=== PATIENT | female | born 1980 | race Caucasian/White ===

== ENCOUNTER 2020-11-20 09:35 | Inpatient (IN) | payer BC ==
[2020-11-20 10:12] VITALS: BMI 43.6
[2020-11-20] MEDS ORDERED: Promethazine HCl 25 MG/ML VIAL IM PRN ×4 (10:40→16:20)
[2020-11-20] MEDS ORDERED: Famotidine/PF 20 mg/2ml Vial SLOW IVP PRN (10:40)
[2020-11-20] MEDS ORDERED: Bicitra 30 ML UDCUP PO PRN ×2 (10:40→10:42)
[2020-11-20] MEDS ORDERED: Acetaminophen 500 MG TAB PO PRN (10:40)
[2020-11-20] MEDS ORDERED: Butorphanol Tartrate 1 MG/ML VIAL SLOW IVP PRN (10:40)
[2020-11-20] MEDS ORDERED: hydrALAZINE 20 MG/ML VIAL SLOW IVP PRN ×2 (10:40→16:20)
[2020-11-20] MEDS ORDERED: Ondansetron PF 4 MG/2 ML Vial IVP PRN ×3 (10:40→16:20)
[2020-11-20] MEDS ORDERED: Lactated Ringer's 1,000 ML IV SCH (10:45)
[2020-11-20] MEDS ORDERED: Azithromycin 500 MG in Sodium Chloride 0.9% 250 ML 250 ML IVPB SCH (10:45)
[2020-11-20] MEDS ORDERED: Clindamycin/D5W 900 MG in Premix Bag 1 BAG IVPB SCH (10:45)
[2020-11-20 11:14] LABS: Hemoglobin 11.8 g/dL (12.0-15.5); Mean Corpuscular HGB CONC 32.5 g/dL (32.0-36.0); Mean Corpuscular Hemoglobin 27.1 pg (27.0-33.0); Mean Corpuscular Volume 83.4 fl (81.6-98.3); Mean Platelet Volume 10.4 fl (7.4-10.4); Platelet Count 361 10x3/uL (150-450); RBC Distribution Width 14.6 % (11.5-14.5); Red Blood Cell (RBC) Count 4.35 10x6/uL (3.90-5.03); White Blood Cell (WBC) Count 12.7 10x3/uL (3.5-10.5)
[2020-11-20] MEDS ORDERED: Phenylephrine 10 MG/ML VIAL ONE (11:38)
[2020-11-20] MEDS ORDERED: Ondansetron PF 4 MG/2 ML Vial ONE (11:38)
[2020-11-20] MEDS ORDERED: Oxytocin 10 UNITS/ML VIAL ONE (11:38)
[2020-11-20 11:39] LABS: Hep B Surf Ag Non-Reactive S/CO (NonReactive); Syphilis Antibody Nonreactive (Nonreactive); Syphilis Antibody Index 0.04 S/CO (<1.00 Non-Reactive)
[2020-11-20] MEDS ORDERED: Morphine PF 10 MG/10 ML VIAL ONE (11:56)
[2020-11-20 12:05] LABS: HBSAg Index 0.14 S/CO (0-0.99)
[2020-11-20] MEDS ORDERED: Naloxone HCl 0.4 mg/ml Vial IVP PRN ×2 (14:46)
[2020-11-20] MEDS ORDERED: diphenhydrAMINE 50 MG/ML VIAL IVP PRN (14:46)
[2020-11-20] MEDS ORDERED: Promethazine HCl 25 MG SUPP PR PRN (14:46)
[2020-11-20] MEDS ORDERED: Naloxone HCl 0.4 mg/ml Vial IV PRN (14:46)
[2020-11-20] MEDS ORDERED: Promethazine HCl 25 MG/ML VIAL SLOW IVP PRN (14:47)
[2020-11-20] MEDS ORDERED: Ondansetron HCl/PF 4 MG/2 ML Vial IVP PRN (14:47)
[2020-11-20] MEDS ORDERED: Communication Order-Pharmacy FS SCH (15:00)
[2020-11-20] MEDS ORDERED: HYDROcodone/Acetaminophen 5/325 mg Tablet PO PRN (16:20)
[2020-11-20] MEDS ORDERED: Zolpidem Tartrate 5 MG TAB PO PRN (16:20)
[2020-11-20] MEDS ORDERED: Bisacodyl 10 MG SUPP PR PRN (16:20)
[2020-11-20] MEDS ORDERED: Adacel (T-DAP) 0.5 ML SYRINGE IM ONE (16:20)
[2020-11-20] MEDS ORDERED: Lanolin Ointment 7 GM TUBE TOP PRN (16:20)
[2020-11-20] MEDS ORDERED: Misoprostol 200 MCG TAB PR PRN (16:20)
[2020-11-20] MEDS ORDERED: Simethicone Chewable 80 MG TAB PO PRN (16:20)
[2020-11-20] MEDS ORDERED: diphenhydrAMINE 25 MG CAP PO PRN (16:20)
[2020-11-20] MEDS ORDERED: Measles/Mumps/Rubella 10 MCG/0.5 ML VIAL SC ONE (16:20)
[2020-11-20] MEDS ORDERED: Varicella virus, LIVE 0.5 ML VIAL SC ONE (16:20)
[2020-11-20] MEDS ORDERED: NS w/ Oxytocin 30 units 500 ML IV SCH (16:20)
[2020-11-20] MEDS ORDERED: Hydrocerin (Eucerin) Cream 120 gm Jar TOP PRN (16:36)
[2020-11-20] MEDS: Ketorolac Tromethamine 30 MG/ML VIAL IVP PRN (17:05)
[2020-11-20] MEDS: Ferrous Sulfate 325 MG TAB PO SCH (20:58)
[2020-11-20] MEDS: Docusate Calcium (SURFAK) 240 MG CAP PO SCH (20:59)
[2020-11-20 21:47] LABS: SARS-CoV-2 PCR by NAA Not Detected (NotDetected)
[2020-11-21] MEDS: Ketorolac Tromethamine 30 MG/ML VIAL IVP PRN ×3 (01:41→16:26)
[2020-11-21 06:19] LABS: Hemoglobin 9.1 g/dL (12.0-15.5); Mean Corpuscular HGB CONC 31.9 g/dL (32.0-36.0); Mean Corpuscular Hemoglobin 27.1 pg (27.0-33.0); Mean Corpuscular Volume 84.8 fl (81.6-98.3); Mean Platelet Volume 10.4 fl (7.4-10.4); Platelet Count 292 10x3/uL (150-450); RBC Distribution Width 14.8 % (11.5-14.5); Red Blood Cell (RBC) Count 3.36 10x6/uL (3.90-5.03); White Blood Cell (WBC) Count 11.4 10x3/uL (3.5-10.5)
[2020-11-21] MEDS: Ferrous Sulfate 325 MG TAB PO SCH ×2 (08:58→20:25)
[2020-11-21] MEDS: Docusate Calcium (SURFAK) 240 MG CAP PO SCH ×2 (08:59→20:24)
[2020-11-21] MEDS: Enoxaparin Sodium 40 MG/0.4 ML SYRINGE SC SCH (10:37)
[2020-11-21] MEDS ORDERED: lamoTRIgine 100 MG TAB PO SCH (12:15)
[2020-11-21] MEDS ORDERED: metFORMIN 500 MG TAB PO SCH (12:15)
[2020-11-21] MEDS ORDERED: Venlafaxine HCl XR 75 MG CAP PO SCH (12:15)
[2020-11-21] MEDS: HYDROcodone/Acetaminophen 5/325 mg Tablet PO PRN ×2 (13:10→20:23)
[2020-11-21] MEDS: Ibuprofen 800 MG TAB PO SCH (20:24)
[2020-11-21] MEDS: Labetalol 100 MG TAB PO SCH (20:29)
[2020-11-22] MEDS: HYDROcodone/Acetaminophen 5/325 mg Tablet PO PRN ×2 (01:07→09:36)
[2020-11-22] MEDS: Ibuprofen 800 MG TAB PO SCH (05:37)
[2020-11-22] MEDS ORDERED: metFORMIN 500 MG TAB PO SCH (08:00)
[2020-11-22] MEDS: Labetalol 100 MG TAB PO SCH (08:14)
[2020-11-22] MEDS: Docusate Calcium (SURFAK) 240 MG CAP PO SCH (08:14)
[2020-11-22] MEDS: Ferrous Sulfate 325 MG TAB PO SCH (08:14)
[2020-11-22] MEDS: Enoxaparin Sodium 40 MG/0.4 ML SYRINGE SC SCH (08:15)
[2020-11-22] MEDS ORDERED: Venlafaxine HCl XR 75 MG CAP PO SCH (09:00)
[2020-11-22] MEDS ORDERED: lamoTRIgine 100 MG TAB PO SCH (09:00)
[2020-11-22 12:17] VITALS: BP 114/66; TEMP 98.8
== END 2020-11-22 13:21 | disposition home or self-care (01) | DRG 787 ==
LOC: CSHLD/OP 09:35 → CSHLD 13:20 → CSHPP 15:10
PROVIDERS: ADMIT Obstetrics & Gynecology; ATTEND Obstetrics & Gynecology
PROC: 10D00Z1 Extraction of Products of Conception, Low, Open Approach (ICD-10-PCS; principal; 2020-11-20)
PROC: 0UCC7ZZ Extirpation of Matter from Cervix, Via Natural or Artificial Opening (ICD-10-PCS; 2020-11-20)
DX: O42.013 Preterm premature rupture of membranes, onset of labor within 24 hours of rupture, third trimester (principal); O10.92 Unspecified pre-existing hypertension complicating childbirth; Z20.822 Contact with and (suspected) exposure to COVID-19; O34.211 Maternal care for low transverse scar from previous cesarean delivery; O99.214 Obesity complicating childbirth; E66.01 Morbid (severe) obesity due to excess calories; F31.9 Bipolar disorder, unspecified; J45.909 Unspecified asthma, uncomplicated; O99.513 Diseases of the respiratory system complicating pregnancy, third trimester; O99.343 Other mental disorders complicating pregnancy, third trimester; Z3A.36 36 weeks gestation of pregnancy; Z37.0 Single live birth; Z88.1 Allergy status to other antibiotic agents; Z88.0 Allergy status to penicillin
CPT/HCPCS: 36415; 51702; 85027; 86780; 86850; 86900; 86901; 87340; 87635; 99285; J1650; J1885; J2274; J2370; J2405; J3490; U0003; U0005

== ENCOUNTER 2021-08-20 15:27 | Outpatient (CLI) | payer BC | END 2021-08-20 15:28 | disposition home or self-care (01) | LOC: CSHMAMMO 15:27 | PROVIDERS: ATTEND Physician Assistant | DX: Z12.31 Encounter for screening mammogram for malignant neoplasm of breast (principal); Z80.3 Family history of malignant neoplasm of breast | CPT/HCPCS: 77063; 77067 ==

== ENCOUNTER 2022-09-10 09:18 | Outpatient (CLI) | payer BC | END 2022-09-10 09:19 | disposition home or self-care (01) | LOC: CSHMAMMO 09:18 | PROVIDERS: ATTEND Physician Assistant | DX: Z12.31 Encounter for screening mammogram for malignant neoplasm of breast (principal); Z80.3 Family history of malignant neoplasm of breast | CPT/HCPCS: 77063; 77067 ==